=== PATIENT | female | born 2005 | race Caucasian/White ===

== ENCOUNTER 2023-06-21 18:07 | Outpatient (CLI) | payer BC, SELFPAY ==
[2023-06-21 18:26] VITALS: BMI 22.3
[2023-06-21] MEDS: ONDANSETRON 4MG/2ML VIAL 4 MG IV (18:35)
[2023-06-21] MEDS: HYDROMORPHONE 2MG/ML SYRINGE 1 MG IV (18:35)
[2023-06-21 18:39] LABS: Microscopic, Urine URINE MICROSCOPIC (MICROSCOPIC)
[2023-06-21] MEDS: LACTATED RINGERS 1000ML 1,000 ML 999 ML IV (18:40)
[2023-06-21 18:42] LABS: Basophils # 0.1 K/mm3 (0-0.2); Basophils % 0.5 % (0.1-2.0); Eosinophils # 0.3 K/mm3 (0.0-0.4); Eosinophils % 2.1 % (0.1-12.0); Lymphocytes # 3.2 K/mm3 (0.7-4.5); Mean Corpuscular HGB Conc 34.1 g/dL (31.8-35.4); Mean Corpuscular Hemoglobin 30.6 pg (27.0-31.2); Mean Corpuscular Volume 89.8 fl (81-99); Mean Platelet Volume 8.5 fl (7.4-10.4); Monocytes # 0.7 K/mm3 (0.1-1.0); Monocytes % 5.3 % (1.7-9.3); Neutrophils # 8.1 K/mm3 (1.8-7.8); Neutrophils % 66.1 % (37.0-80.0); Platelet Count 268 K/mm3 (142-424); Red Blood Count 4.57 M/mm3 (4.20-5.40); Red Cell Distribution Width 13.2 % (11.5-17.5); White Blood Count 12.3 K/mm3 (4.5-13.0)
[2023-06-21 18:43] LABS: Appearance,Urine SL CLOUDY (Clear); Bilirubin,Urine Negative (Negative); Blood, Urine Negative (Negative); Color,Urine YELLOW (Yellow); Glucose,Urine (UA) Negative (Negative); Ketones,Urine 1+ (Negative); Leukocyte Esterase,Urine 1+ (Negative); Nitrate,Urine Negative (Negative); PH,Urine 7.5 (5.0-8.5); Protein,Urine Negative (Negative); Urobilinogen,Urine 0.2 EU/dl (0.2)
[2023-06-21 18:45] LABS: Chloride 106 mmol/L (98-107); Sodium 136 mmol/L (136-145)
[2023-06-21 18:46] LABS: Potassium 3.6 mmoL/L (3.5-5.1)
[2023-06-21 18:48] LABS: Alanine Aminotransferase 29 U/L (12-78); Albumin/Globulin Ratio 1.2 (1.1-1.8); Alkaline Phosphatase 118 U/L (38-126); Anion Gap 12.6 mEq/L (5-15); Aspartate Amino Transferase 32 U/L (14-36); Bilirubin,Total 0.4 mg/dl (0.2-1.3); Blood Urea Nitrogen 4 mg/dl (7-17); Carbon Dioxide 21 mmol/L (22.0-30.0); Creatinine Clearance Estimated 281 mL/min (50-200); Estimated Glomerular Filt Rate 287 ml/min (>60); GFR (African American) 347 ML/MIN (>60); Globulin 3.3 g/dL (1.3-3.2); Total Protein,Serum 7.3 g/dl (6.3-8.2)
[2023-06-21 18:49] LABS: Calcium 8.9 mg/dl (8.4-10.2); Glucose 104 mg/dl (74-100)
[2023-06-21 18:53] LABS: Bacteria,Urine 3+ /lpf
[2023-06-21 18:54] LABS: Barbiturates Screen,Urine Negative ng/ml (<200); Benzodiazepines Screen,Urine Negative ng/ml (<200)
[2023-06-21 18:55] LABS: Amphetamine/Metha Screen,Urine Negative ng/ml (<1000)
[2023-06-21 18:56] LABS: Cannabinoid Screen,Urine Positive ng/ml (<50); Cocaine Screen,Urine Negative ng/ml (<300)
[2023-06-21 18:58] LABS: Opiate Screen,Urine Negative ng/ml (<300); Phencyclidine Screen,Urine Negative ng/ml (<25)
[2023-06-21 19:05] LABS: Methadone Screen,Urine Negative ng/ml (<300)
[2023-06-21 19:06] VITALS: BP 124/78; PULSE 73; RESP 18; TEMP 36.4; O2SAT 97; BMI 49.1
--- NOTE | 2023-06-21 19:47 | EXP.ACUTE.PN ---
Subjective *Date: 06/21/23 *Time: 19:47 Interval history: She is a 17-year-old 1 para 0 at 26 and 3 weeks gestational age. She sees Dr. Guardado in [place]. She says that she was visiting her boyfriend's mother here and around 4:00 began to have some severe right lower quadrant pain that eventually went underneath her ribs on the left-hand side. She was very uncomfortable when she first arrived. We gave her 1 mg of Dilaudid and this seemed to get rid of her pain. We also gave her 4 mg of Zofran. Her blood work was all normal. White blood cell count was normal. Electrolytes were normal. Her urinalysis was normal. She is afebrile. She denies any vaginal bleeding. She had positive marijuana in her urine but otherwise no other abnormalities. Her nonstress test showed heart tones and there were no contractions. I did a screening ultrasound and the fetus is in the cephalic presentation with a posterior placenta grade 1. There was adequate fluid around the baby. The baby was active and moving. Heart tones were seen. There was no evidence of an abruption and when I did her ultrasound her belly was soft and she did not complain of any pain. On examination she really did not have any evidence of peritoneal signs, her belly was soft and nontender. It is not clear whether this may be bowel related. I do not suspect that she has kidney stones. She does not look to be in any distress at this point in time. Given the fact that she feels better and the pain is not localized to the right lower quadrant or right flank I do not not believe that she has appendicitis. Medical Exam Vital signs and Labs for Last 24 Hours: Vital Signs Temp Pulse Resp BP Pulse Ox O2 Del Method 06/21/23 19:06 97.6 F 73 18 124/78 97 Room Air Intake and Output 06/21/23 06/21/23 06/21/23 03:59 11:59 19:59 Other: Weight 286 lb 9.615 oz Patient Weight 06/22/23 11:59 Weight 286 lb 9.615 oz Laboratory Results - last 24 hr 06/21/23 18:25: WBC 12.3, RBC 4.57, Hgb 14.0, Hct 41.0, MCV 89.8, MCH 30.6, MCHC 34.1, RDW 13.2, Plt Count 268, MPV 8.5, Neut % (Auto) 66.1, Lymph % (Auto) 26.0, [place] % (Auto) 5.3, Eos % (Auto) 2.1, Baso % (Auto) 0.5, Neut # (Auto) 8.1 H, Lymph # (Auto) 3.2, [place] # (Auto) 0.7, Eos # (Auto) 0.3, Baso # (Auto) 0.1, Sodium 136, Potassium 3.6, Chloride 106, Carbon Dioxide 21 L, Anion Gap 12.6, BUN 4 L, Creatinine 0.30 L, Estimated Creat Clear 281, Estimated GFR 287, Est GFR ( Amer) 347, Glucose 104 H, Calcium 8.9, Total Bilirubin 0.4, AST 32, ALT 29, Alkaline Phosphatase 118, Total Protein 7.3, Albumin 4.0, Globulin 3.3 H, Albumin/Globulin Ratio 1.2, Urine Color Yellow, Urine Appearance Sl cloudy, Urine pH 7.5, Ur Specific [place] 1.020, Urine Protein Negative, Urine Glucose (UA) Negative, Urine Ketones 1+, Urine Blood Negative, Urine Nitrate Negative, Urine Bilirubin Negative, Urine Urobilinogen 0.2, Ur Leukocyte Esterase 1+ A, Urine RBC None, Urine WBC 10-20, Ur Squamous Epith Cells 5-10, Urine Bacteria 3+, Urine Opiates Screen Negative, Urine Methadone Screen Negative, Ur Barbituates Screen Negative, Ur Phencyclidine Scrn Negative, Ur Amphetamines Screen Negative, U Benzodiazepines Scrn Negative, Urine Cocaine Screen Negative, U Marijuana (THC) Screen Positive H I & O for Labs for Last 24 Hours: Intake & Output 06/19/23 06/20/23 06/21/23 06/22/23 11:59 11:59 11:59 11:59 Weight 286 lb 9.615 oz Head: Present atraumatic Neck: Present normal inspection Respiratory: Present normal respiratory effort; Absent accessory muscle use Cardiac: Present Reg Rate and Rhythm GI: Present soft and normal bowel sounds; Absent distention, tenderness, guarding, rebound, rigidity or tenderness at [place] Rectal (female): Present deferred (female): Present deferred Assessment and Plan *Assessment and plan (1) Abdominal pain affecting , antepartum: Status: Acute Category: Medical Code(s): O26.899 - Other specified related conditions, unspecified trimester; R10.9 - Unspecified abdominal pain Plan She arrived and had blood work drawn as well as urinalysis which were all normal. No white count. She was afebrile. She was in quite a lot of pain when she first arrived and we did give her 1 mg of Dilaudid which seemed to resolve her pain. She says she had a bowel movement yesterday and has been urinating well today. She had some vomiting with the pain but this has now resolved. She denies any vaginal bleeding. We did an ultrasound and there was really no evidence of an abruption. The probe did not cause her any discomfort when I was pressing with the probe on her abdomen. The fetus is in the cephalic presentation with a posterior placenta grade 1. I could not see any evidence of abruption. She does not appear to be in any distress on discharge. She is going back to [facility] [place] and will follow-up with her doctor this week. I told her if the pain gets worse then she should go back to labor and delivery at . Her condition on discharge is stable and improved.
[2023-06-21] MEDS: OXYCODONE 5MG W/APAP 325MG TABLET 1 EACH PO (20:06)
== END 2023-06-21 20:48 | disposition home or self-care (01) ==
LOC: OBOUT 18:08 → OB 18:09
PROVIDERS: PCP Family Medicine; Visit Provider Nurse Practitioner Obstetrics & Gynecology
DX: O26.892 Other specified pregnancy related conditions, second trimester (principal); Z3A.26 26 weeks gestation of pregnancy; R10.9 Unspecified abdominal pain
CPT/HCPCS: 59025; 80053; 80307; 81001; 85025; 87086; 96365; G0463; J2405